=== PATIENT | female | born 1970 | race Caucasian/White ===

== ENCOUNTER 2019-04-09 11:39 | Emergency (ER) | payer MEDICAID ==
[~2019-04-09] VITALS: Ht 172.7 cm; Wt 68.0 kg
[2019-04-09 11:57] VITALS: BP_SYST 114
--- NOTE | 2019-04-09 12:11 | NUR ---
Placed in room 3[address] recording monitor, blood pressure machine and pulse oximeter. To gown for exam. Side rails up. Report given to GUS Sanon.
--- NOTE | 2019-04-09 12:15 | NUR ---
Patient arrived in the ED c/o lower abdominal pain and right flank pain that started this morning, pain severity 7/10. Denied any fevers or chills. Denied any nausea, vomiting or diarrhea. Denied any recent trauma or falls. Patient is alert and oriented x4, respirations even and unlabored, speaking in full sentences, ambulating with a steady gait. VS WNL. Denied any respiratory distress at this time. Informed of the wait time. Instructed to notify ED staff for any changes in condition while waiting to be seen by a provider. Patient verbalized understanding.
--- NOTE | 2019-04-09 12:21 | NUR ---
ER at bedside examining patient.
[2019-04-09 12:53] LABS: BASOPHILS # (AUTO) 0.1 K/uL (0.0-0.2); BASOPHILS % (AUTO) 0.7 % (0.0-2.0); EOSINOPHILS # (AUTO) 0.1 K/uL (0.0-0.4); EOSINOPHILS % (AUTO) 0.9 % (0.0-4.0); HEMATOCRIT 39.6 % (36-48); HEMOGLOBIN 13.6 g/dL (12.0-16.0); LYMPHOCYTES # (AUTO) 1.9 K/uL (1.0-5.5); LYMPHOCYTES % (AUTO) 20.4 % (20.5-51.5); MEAN CORPUSCULAR HEMOGLOBIN 31 pg (27-31); MEAN CORPUSCULAR HGB CONC 34 % (32-36); MEAN CORPUSCULAR VOLUME 91 fL (79.0-98.0); MONOCYTES # (AUTO) 0.6 K/uL (0.0-1.0); MONOCYTES % (AUTO) 6.6 % (1.7-9.3); NEUTROPHILS # (AUTO) 6.6 K/uL (1.8-7.7); NEUTROPHILS % (AUTO) 71.4 % (40.0-70.0); PLATELET COUNT (AUTO) 305 K/uL (130-430); RED BLOOD CELL COUNT(AUTO) 4.35 MIL/uL (4.2-6.2); RED CELL DISTRIBUTION WIDTH 12.9 % (9.0-15.0); WHITE BLOOD COUNT (AUTO) 9.2 K/uL (4.8-10.8)
--- NOTE | 2019-04-09 12:54 | NUR ---
Report given and care transferred to GUS Shoemaker.
[2019-04-09 13:01] LABS: CALCIUM 8.9 mg/dL (8.4-11.0); CREATININE 0.61 mg/dL (0.55-1.30); POTASSIUM 3.8 mmol/L (3.5-5.1)
[2019-04-09 13:08] LABS: ALBUMIN 4.2 g/dL (3.4-4.8); TOTAL BILIRUBIN 0.4 mg/dL (0.0-1.0)
--- NOTE | 2019-04-09 15:11 | NUR ---
Patient taken to CT via wheelchair, in stable condition
[2019-04-09] MEDS ORDERED: IOHEXOL 100 ML IV ONE (15:19)
--- NOTE | 2019-04-09 15:20 | NUR ---
Patient is back from CT in stable condition.
[2019-04-09 17:34] VITALS: BP_SYST 112
--- NOTE | 2019-04-09 17:34 | NUR ---
Discontinued Peripheral IV as ordered by Dr. Santiago. Patient tolerated the procedure well.
--- NOTE | 2019-04-09 17:35 | NUR ---
Patient given written and verbal discharge instructions and verbalizes understanding. ER MD discussed with patient the results and treatment provided. Patient in stable condition. ID arm band removed. IV catheter removed intact and dressing applied, no active bleeding. Rx of Ibuprofen and Tylenol given. Patient educated on pain management and to follow up with PMD. Pain Scale 0/10. Opportunity for questions provided and answered. Medication side effect fact sheet provided.
== END 2019-04-09 17:34 | disposition home or self-care (01) ==
LOC: SED 11:39
DX: K52.9 Noninfective gastroenteritis and colitis, unspecified (principal); N83.291 Other ovarian cyst, right side; E87.1 Hypo-osmolality and hyponatremia
CPT/HCPCS: 36415; 74177; 80053; 81002; 81025; 85025; 99284; Q9967

== ENCOUNTER 2019-12-12 12:08 | Emergency (ER) | payer MEDICAID ==
[~2019-12-12] VITALS: Ht 172.7 cm; Wt 67.1 kg
[2019-12-12 12:08] VITALS: BP_SYST 104
[2019-12-12 12:40] LABS: BASOPHILS # (AUTO) 0.1 K/uL (0.0-0.2); BASOPHILS % (AUTO) 0.9 % (0.0-2.0); EOSINOPHILS # (AUTO) 0.1 K/uL (0.0-0.4); EOSINOPHILS % (AUTO) 1.7 % (0.0-4.0); HEMATOCRIT 40.4 % (36-48); HEMOGLOBIN 13.1 g/dL (12.0-16.0); LYMPHOCYTES # (AUTO) 2.1 K/uL (1.0-5.5); LYMPHOCYTES % (AUTO) 25.1 % (20.5-51.5); MEAN CORPUSCULAR HEMOGLOBIN 29 pg (27-31); MEAN CORPUSCULAR HGB CONC 32 % (32-36); MEAN CORPUSCULAR VOLUME 91 fL (79.0-98.0); MONOCYTES # (AUTO) 0.5 K/uL (0.0-1.0); NEUTROPHILS # (AUTO) 5.5 K/uL (1.8-7.7); NEUTROPHILS % (AUTO) 66.3 % (40.0-70.0); PLATELET COUNT (AUTO) 319 K/uL (130-430); RED BLOOD CELL COUNT(AUTO) 4.45 MIL/uL (4.2-6.2); RED CELL DISTRIBUTION WIDTH 13.1 % (9.0-15.0); WHITE BLOOD COUNT (AUTO) 8.2 K/uL (4.8-10.8)
[2019-12-12 13:38] LABS: CALCIUM 8.9 mg/dL (8.4-11.0); CREATININE 0.63 mg/dL (0.55-1.30); POTASSIUM 3.8 mmol/L (3.5-5.1)
[2019-12-12 13:44] LABS: TOTAL BILIRUBIN 0.3 mg/dL (0.0-1.0)
[2019-12-12] MEDS ORDERED: KETOROLAC TROMETHAMINE 60 MG/2 ML VIAL IM ONE (13:45)
[2019-12-12 17:53] VITALS: BP_SYST 113
== END 2019-12-12 17:53 | disposition home or self-care (01) ==
LOC: SED 12:08
DX: K59.00 Constipation, unspecified (principal); N39.0 Urinary tract infection, site not specified; R10.31 Right lower quadrant pain
CPT/HCPCS: 36415; 74176; 76700; 76856; 80053; 81002; 81025; 83690; 85025; 87086; 96372; 99285; J1885

== ENCOUNTER 2020-08-24 10:34 | Emergency (ER) | payer MEDICAID ==
[~2020-08-24] VITALS: Ht 170.2 cm; Wt 68.0 kg
[2020-08-24 10:43] VITALS: BP_SYST 134
--- NOTE | 2020-08-24 10:43 | NUR ---
Patient to ER bed 8 to gown for evaluation. Side rails up. Report given to ERLIN WEBER.
--- NOTE | 2020-08-24 10:45 | NUR ---
PATIENT PRESENTED TO C/O ABDOMINAL PAIN. PT AMBULATORY TO ER A&OX4, SKIN PINK & WARM, AFEBRILE, PAIN 5/10, NAUSEA, DENIES V/D. PATIENT STSTES SHE HAD ABDOMINAL PAIN TODAY AT 0530, TOOK MOTRIN PO. PT REPORTS PAIN CONTINUED WHILE WORKING TODAY AT [facility] ADMITTING, PAIN BECAME 10/10, CHECKED IN TO ER.
--- NOTE | 2020-08-24 10:50 | NUR ---
ER Dr. COUCH at bedside examining patient.
[2020-08-24] MEDS ORDERED: ONDANSETRON HCL 4 MG/2 ML VIAL IVP ONE (11:00)
[2020-08-24] MEDS ORDERED: MORPHINE 4 MG INJ. 4 MG/ML VIAL IVP ONE (11:00)
[2020-08-24] MEDS ORDERED: KETOROLAC TROMETHAMINE 30 MG VIAL IVP ONE (11:00)
[2020-08-24] MEDS ORDERED: NACL 0.9% 1,000 ML IV ONE (11:00)
[2020-08-24 11:18] LABS: BASOPHILS % (AUTO) 0.6 % (0.0-2.0); EOSINOPHILS # (AUTO) 0.1 K/uL (0.0-0.4); EOSINOPHILS % (AUTO) 1.2 % (0.0-4.0); HEMATOCRIT 39.1 % (36-48); LYMPHOCYTES % (AUTO) 24.2 % (20.5-51.5); MEAN CORPUSCULAR HEMOGLOBIN 30 pg (27-31); MEAN CORPUSCULAR HGB CONC 33 % (32-36); MEAN CORPUSCULAR VOLUME 91 fL (79.0-98.0); MONOCYTES # (AUTO) 0.5 K/uL (0.0-1.0); MONOCYTES % (AUTO) 5.8 % (1.7-9.3); NEUTROPHILS # (AUTO) 5.7 K/uL (1.8-7.7); NEUTROPHILS % (AUTO) 68.2 % (40.0-70.0); PLATELET COUNT (AUTO) 289 K/uL (130-430); RED BLOOD CELL COUNT(AUTO) 4.28 MIL/uL (4.2-6.2); RED CELL DISTRIBUTION WIDTH 12.7 % (9.0-15.0); WHITE BLOOD COUNT (AUTO) 8.4 K/uL (4.8-10.8)
[2020-08-24 11:29] LABS: CALCIUM 8.5 mg/dL (8.4-11.0); CREATININE 0.65 mg/dL (0.55-1.30); POTASSIUM 3.4 mmol/L (3.5-5.1)
[2020-08-24 11:40] LABS: ALBUMIN 4.2 g/dL (3.4-4.8); TOTAL BILIRUBIN 0.3 mg/dL (0.0-1.0)
[2020-08-24 12:06] LABS: BILIRUBIN,URINE NEGATIVE (NEGATIVE); BLOOD, URINE NEGATIVE (NEGATIVE); COLOR,URINE YELLOW (YELLOW); GLUCOSE,URINE NEGATIVE (NEGATIVE); KETONES,URINE NEGATIVE (NEGATIVE); LEUKOCYTE ESTERASE ,URINE TRACE (NEGATIVE); NITRITE, URINE NEGATIVE (NEGATIVE); PROTEIN URINE NEGATIVE (NEGATIVE); UROBILINOGEN,URINE 0.2 (0.2-1.0)
[2020-08-24 12:15] LABS: CLARITY/URINE SLIGHTLY HAZY (CLEAR)
[2020-08-24 12:28] LABS: BACTERIA,URINE RARE /HPF (None Seen); RBC,URINE 0-3 /HPF (0-3)
[2020-08-24] MEDS ORDERED: MAGN296S30 PO (12:47)
[2020-08-24] MEDS ORDERED: NITR-85 PO (12:47)
[2020-08-24] MEDS ORDERED: DICY10CA13 PO (12:47)
--- NOTE | 2020-08-24 13:13 | NUR ---
Note undone in EDM - 08/24/20 at 1545 by [email or web address] Patient given written and verbal discharge instructions and verbalizes understanding. ER discussed with patient the results and treatment provided. Patient in stable condition. ID arm band removed. Rx of dicyclomine, magcitrate, macrobid given. Patient educated on pain management and to follow up with PMD. Pain Scale 0/10. Opportunity for questions provided and answered. Medication side effect fact sheet provided.
[2020-08-24 14:45] VITALS: BP_SYST 134
--- NOTE | 2020-08-24 14:45 | NUR ---
Patient given written and verbal discharge instructions and verbalizes understanding. ER MD discussed with patient the results and treatment provided. Patient in stable condition. ID arm band removed. Rx of dicyclomine, magcitrate, macrobid given. Patient educated on pain management and to follow up with PMD. Pain Scale 0/10. Opportunity for questions provided and answered. Medication side effect fact sheet provided.
== END 2020-08-24 14:45 | disposition home or self-care (01) ==
LOC: SED 10:34
DX: R10.31 Right lower quadrant pain (principal); N39.0 Urinary tract infection, site not specified; Z79.899 Other long term (current) drug therapy
CPT/HCPCS: 36415; 74176; 76376; 80053; 81000; 81003; 81025; 83690; 84703; 85025; 96374; 96375; 99284; J1885; J2270; J2405

== ENCOUNTER 2021-10-28 18:40 | Emergency (ER) | payer MEDICAID ==
[~2021-10-28] VITALS: Ht 172.7 cm; Wt 70.3 kg
[~2021-10-28 18:40] MED LIST: DICY10CA13 PO; MAGN296S8 PO; NITR-85 PO
[2021-10-28 19:41] VITALS: BP_SYST 109
--- NOTE | 2021-10-28 19:44 | NUR ---
Patient triaged and placed in waiting room. VSS and patient appears in no acute distress at this time. Accompanied by , awaiting available bed, and MD notified of need for MSE.
--- NOTE | 2021-10-28 22:40 | NUR ---
Patient to [facility] for evaluation. Report given to GUS Velez
--- NOTE | 2021-10-28 22:42 | NUR ---
Patient brought in from home A O x4 complaining of laceration to her right fifth finger pad. Patient reports that she was at home cutting a watermelon when she cut her finger. Bleeding is controlled. Denies any pain at this time. Tetanus is not up-to-date. No other complaints per patient or as noted
--- NOTE | 2021-10-28 22:44 | NUR ---
Dr. Elizabeth Caceres at bedside assessing patient
[2021-10-28] MEDS ORDERED: cephALEXin 500 MG CAPSULE PO ONE (22:45)
[2021-10-28] MEDS ORDERED: DIPH-TET-PERTUS Vaccine 0.5 ML VIAL (ADACEL) I.M. ONE (22:45)
[2021-10-28] MEDS ORDERED: CEPH250C PO (22:51)
[2021-10-28] MEDS ORDERED: BACITRACIN ZINC 15 GM TOPICAL OINTMENT TP SCH (23:00)
[2021-10-28] MEDS ORDERED: BACITRACIN 1 GM OINT TP ONE (23:25)
[2021-10-29 00:02] VITALS: BP_SYST 146
--- NOTE | 2021-10-29 00:04 | NUR ---
Pt DC per MD's order DC instructions and prescription given to pt Pt DC per MD's order Pt verbalized understandings Pt AOX4 VSS Verbally responsive Able to make needs known Pt exited ED in stable condition
== END 2021-10-29 00:03 | disposition home or self-care (01) ==
LOC: SED 18:40
DX: S61.217A Laceration without foreign body of left little finger without damage to nail, initial encounter (principal); X58.XXXA Exposure to other specified factors, initial encounter; Y93.89 Activity, other specified; Y92.89 Other specified places as the place of occurrence of the external cause; Y99.8 Other external cause status
CPT/HCPCS: 90715; 99283

== ENCOUNTER 2023-09-11 09:39 | Emergency (ER) | payer MEDICAID ==
[~2023-09-11] VITALS: Ht 172.7 cm; Wt 72.6 kg
[~2023-09-11 09:39] MED LIST changes: +CEPH250C PO; +DICY-14 PO; -DICY10CA13 PO
[2023-09-11 09:55] VITALS: BP_SYST 100; PULSE 111; RESP 18; TEMP 98.3; O2SAT 98
[2023-09-11 11:07] LABS: BASOPHILS % (AUTO) 0.2 % (0.0-2.0); EOSINOPHILS # (AUTO) 0.1 K/uL (0.0-0.4); EOSINOPHILS % (AUTO) 1.4 % (0.0-4.0); HEMATOCRIT 35.6 % (36-48); HEMOGLOBIN 11.7 g/dL (12.0-16.0); LYMPHOCYTES # (AUTO) 1.1 K/uL (1.0-5.5); LYMPHOCYTES % (AUTO) 9.8 % (20.5-51.5); MEAN CORPUSCULAR HEMOGLOBIN 27 pg (27-31); MEAN CORPUSCULAR HGB CONC 33 % (32-36); MEAN CORPUSCULAR VOLUME 82 fL (79.0-98.0); MONOCYTES # (AUTO) 0.4 K/uL (0.0-1.0); MONOCYTES % (AUTO) 3.9 % (1.7-9.3); NEUTROPHILS # (AUTO) 9.2 K/uL (1.8-7.7); NEUTROPHILS % (AUTO) 84.7 % (40.0-70.0); PLATELET COUNT (AUTO) 390 K/uL (130-430); RED BLOOD CELL COUNT(AUTO) 4.33 MIL/uL (4.2-6.2); RED CELL DISTRIBUTION WIDTH 14.6 % (9.0-15.0); WHITE BLOOD COUNT (AUTO) 10.9 K/uL (4.8-10.8)
[2023-09-11 11:15] LABS: CALCIUM 8.7 mg/dL (8.4-11.0); CREATININE 0.62 mg/dL (0.55-1.30); POTASSIUM 3.8 mmol/L (3.5-5.1)
[2023-09-11] MEDS ORDERED: PIPERACILLIN/TAZOBACTAM 3.375 GM/VIAL (ZOSYN) IV ONE (11:19)
[2023-09-11] MEDS: PIPERACILLIN/TAZO 3.375 GM in NS 50 ML IV ONE (11:28)
[2023-09-11] MEDS: DIPHTH,PERTUSS(ACELL),TET VAC 0.5 ML VIAL (Tdap) I.M. ONE (11:42)
[2023-09-11] MEDS ORDERED: AMOX-423 PO (13:14)
[2023-09-11] MEDS ORDERED: DOXY100C5 PO (13:17)
[2023-09-11] MEDS: DIPHENHYDRAMINE HCL/ZINC ACET 28.3 GM CREAM.GM. TP ONE (13:59)
[2023-09-11 14:01] VITALS: BP_SYST 100; PULSE 111; RESP 18; TEMP 98.3; O2SAT 98
== END 2023-09-11 13:59 | disposition home or self-care (01) ==
LOC: SED 09:39
DX: R21 Rash and other nonspecific skin eruption (principal)
CPT/HCPCS: 99284; 96365; 80048; 85025; 87040; 36415; 90715; 83605; 90471; J2543

== ENCOUNTER 2024-01-08 06:10 | Emergency (ER) | payer MEDICAID ==
[~2024-01-08] VITALS: Ht 172.7 cm; Wt 72.6 kg
[~2024-01-08 06:10] MED LIST changes: +AMOX-423 PO; +DOXY100C5 PO
[2024-01-08 06:31] VITALS: BP_SYST 128; PULSE 93; RESP 18; TEMP 98.1; O2SAT 98
[2024-01-08 07:15] LABS: BASOPHILS # (AUTO) 0.1 K/uL (0.0-0.2); BASOPHILS % (AUTO) 0.5 % (0.0-2.0); EOSINOPHILS # (AUTO) 0.2 K/uL (0.0-0.4); EOSINOPHILS % (AUTO) 1.9 % (0.0-4.0); HEMATOCRIT 33.7 % (36-48); HEMOGLOBIN 10.9 g/dL (12.0-16.0); LYMPHOCYTES # (AUTO) 1.7 K/uL (1.0-5.5); LYMPHOCYTES % (AUTO) 16.5 % (20.5-51.5); MEAN CORPUSCULAR HEMOGLOBIN 26 pg (27-31); MEAN CORPUSCULAR HGB CONC 32 % (32-36); MEAN CORPUSCULAR VOLUME 81 fL (79.0-98.0); MONOCYTES # (AUTO) 0.6 K/uL (0.0-1.0); MONOCYTES % (AUTO) 5.9 % (1.7-9.3); NEUTROPHILS # (AUTO) 7.6 K/uL (1.8-7.7); NEUTROPHILS % (AUTO) 75.2 % (40.0-70.0); PLATELET COUNT (AUTO) 362 K/uL (130-430); RED BLOOD CELL COUNT(AUTO) 4.15 MIL/uL (4.2-6.2); RED CELL DISTRIBUTION WIDTH 14.8 % (9.0-15.0); WHITE BLOOD COUNT (AUTO) 10.1 K/uL (4.8-10.8)
[2024-01-08 07:40] LABS: INR 0.9 (0.8-1.2); PROTHROMBIN TIME 10.2 SECS (9.5-12.5)
[2024-01-08 07:41] LABS: SERUM HCG (QUALITATIVE) NEGATIVE (NEGATIVE)
[2024-01-08 07:44] LABS: ANION GAP 8 (5-15); CALCIUM 8.7 mg/dL (8.4-11.0); CARBON DIOXIDE 27 mmol/L (23-29); CHLORIDE 100 mmol/L (98-107); CREATININE 0.71 mg/dL (0.55-1.30); GFR AFRICAN AMERICAN 111 mL/min (>90); GFR NON AFRICAN-AMERICAN 92 mL/min (>90); GLUCOSE 102 mg/dL (74-106); POTASSIUM 3.7 mmol/L (3.5-5.1); SODIUM SERUM 135 mmol/L (136-145); UREA NITROGEN, BLOOD 11 mg/dL (8-21)
[2024-01-08] MEDS ORDERED: ALPR0.5T PO (08:29)
[2024-01-08 09:07] VITALS: BP_SYST 110; PULSE 68; RESP 18; TEMP 97.6; O2SAT 97
== END 2024-01-08 09:05 | disposition home or self-care (01) ==
LOC: SED 06:10
DX: R07.81 Pleurodynia (principal); Z79.899 Other long term (current) drug therapy; Z79.2 Long term (current) use of antibiotics
CPT/HCPCS: 36415; 71045; 80048; 83880; 84484; 84703; 85025; 85379; 85610; 85730; 93005; 99285

== ENCOUNTER 2024-01-22 12:36 | Emergency (ER) | payer MEDICAID ==
[~2024-01-22] VITALS: Ht 172.7 cm; Wt 72.6 kg
[~2024-01-22 12:36] MED LIST changes: +ALPR0.5T PO
[2024-01-22 12:45] VITALS: BP_SYST 121; PULSE 98; RESP 18; TEMP 98.6; O2SAT 98
[2024-01-22] MEDS ORDERED: CEPH-548 PO (13:22)
[2024-01-22] MEDS ORDERED: PRED20TA PO (13:22)
[2024-01-22] MEDS: cephALEXin 500 MG CAPSULE PO ONE (13:38)
[2024-01-22] MEDS: predniSONE 20 MG TABLET PO ONE (13:39)
[2024-01-22 14:09] VITALS: BP_SYST 121; PULSE 98; RESP 18; TEMP 98.6; O2SAT 98
== END 2024-01-22 14:09 | disposition home or self-care (01) ==
LOC: SED 12:36
DX: S40.862A Insect bite (nonvenomous) of left upper arm, initial encounter (principal); S40.861A Insect bite (nonvenomous) of right upper arm, initial encounter; Z79.899 Other long term (current) drug therapy; Z79.2 Long term (current) use of antibiotics; W57.XXXA Bitten or stung by nonvenomous insect and other nonvenomous arthropods, initial encounter; Y93.89 Activity, other specified; Y92.89 Other specified places as the place of occurrence of the external cause; Y99.8 Other external cause status
CPT/HCPCS: 99283; J7512